=== PATIENT | female | born 1975 | race Caucasian/White ===

== ENCOUNTER → 2017-01-28 | Outpatient (CLI) | payer OTHER | LOC: FIMAGING 09:28 | PROVIDERS: ATTEND Nurse Practitioner Women's Health | DX: N63 Unspecified lump in breast (principal); Z80.3 Family history of malignant neoplasm of breast | CPT/HCPCS: G0204 ==

== ENCOUNTER 2018-07-20 14:36 | Emergency (ER) | payer OTHER ==
[2018-07-20] MEDS ORDERED: OXYCODONE/APAP 5/325 TAB PO ONE ×2 (15:24→16:22)
--- NOTE | 2018-07-20 16:07 | EDPHY ---
H & P Stated Complaint: FALL INJ R ELBOW Time Seen by Provider: 07/20/18 15:56 HPI/ROS: HPI: This is a 43-year-old female who presents with Chief Complaint: FALL INJ R ELBOW Location: Right elbow Quality: Injury Duration: 1-2 hours prior to arrival Signs and Symptoms: No bleeding, no radiation, + numbness, no weakness, no tingling, no incontinence, + decreased range of motion, + swelling, + pain, no fever Timing: Acute, constant Severity: 8 Context: Patient is right-hand dominant, was carrying takeout food in a plastic bag on her left wrist as she was going up the stairs when she tripped and landed on her right outstretched hand. She reports that she feels immediate , constant, severe pain in her right elbow with associated swelling and ecchymosis. She reports that she cannot turn her hand over due to pain. She reports no pain in her right wrist breath, right hand, right fingers. She does have some numbness in her 2nd 3rd fingers. Patient reports when she fell she did not hit her head or lose consciousness. Denies LOC/head injury/neck pain/ dizziness/nausea/vomiting/amnesia. Modifying Factors: None Comment: ROS: A comprehensive 10 system review of systems is otherwise negative aside from elements mentioned in the history of present illness. MEDICAL/SURGICAL/SOCIAL HISTORY: Medical history: Left shoulder injury with questionable dislocation, allergies, . LMP 2-3 weeks ago. Surgical history: Denies Social history: Employed, , nonsmoker. CONSTITUTIONAL: Polite and cooperative middle-aged white female, at bedside, awake and alert, no obvious distress HEENT: Atraumatic and normocephalic. NECK: supple, no midline tenderness, flexion 45 degrees, extension 45 degrees, right and left lateral flexion 45 degrees. No meningismus. Cardiovascular: Normal S1/S2, regular rate, regular rhythm, without murmur rub or gallop. PULMONARY/CHEST: Symmetrical and nontender. no crepitus. Clear to auscultation bilaterally. Good air movement. No accessory muscle usage. ABDOMEN: Soft, nondistended, nontender, no ecchymosis. EXTREMITIES: 2/2 pulses, strength 5/5, left ELBOW: extension only to 90 , flexion to 90, moderate tenderness over medial epicondyle, moderate tenderness over lateral epicondyle, moderate effusion. Right WRIST: Extension to 70, flexion to 80, radial deviation to 20 degree, ulnar deviation to 30, no scaphoid tenderness, no tenderness over ulnar styloid, no tenderness over radial styloid. Able to wiggle all 5 fingers without difficulty. Able to perform shoulder shrugs without difficulty with the deltoid 5/5 strength. DIP/ PIP/MCP flexion/extension intact with good light touch sensation. no deformities , no clubbing, no cyanosis or edema. NEUROLOGICAL: no focal neuro deficits. GCS 15. Light touch sensation intact. SKIN: Warm and dry, no erythema. no rash. Good capillary refill. Source: Patient Exam Limitations: No limitations - Personal History LMP (Females 10-55): 15-21 Days Ago Current Tetanus Diphtheria and Acellular Pertussis (TDAP): Yes - Medical/Surgical History Hx Asthma: Yes Hx Chronic Respiratory Disease: No Hx Diabetes: No Hx Cardiac Disease: No Hx Renal Disease: No Hx Cirrhosis: No Hx Alcoholism: No Hx HIV/AIDS: No Hx Splenectomy or Spleen Trauma: No Other PMH: L SHOULDER INJ/?DISLOCATION - Social History Smoking Status: Never smoked Constitutional: Initial Vital Signs Temperature (C) 36.6 C 07/20/18 14:40 Heart Rate 81 07/20/18 14:40 Respiratory Rate 18 07/20/18 14:40 Blood Pressure 117/72 07/20/18 14:40 O2 Sat (%) 96 07/20/18 14:40 O2 Delivery Mode Room Air Allergies/Adverse Reactions: amoxicillin Allergy (Verified 07/20/18 14:39) latex Allergy (Verified 07/20/18 14:39) Home Medications: Medication Instructions Recorded Dulera 100 Mcg/5 Mcg Inhaler 07/20/18 Flonase Allergy Relief 07/20/18 ZYRTEC 07/20/18 oxyCODONE/APAP 5/325 [Percocet 1 - 2 tab PO Q4H PRN #12 tab 07/20/18 5/325 (*)] Medical Decision Making - Diagnostics Imaging Results: Imaging Impressions Elbow X-Ray 07/20/18 14:44 Impression: Nondisplaced radial head fracture, with elbow joint effusion. Procedures: Procedure: Splint placement. A right posterior Ortho Glass splint and sling were applied by the Emergency Room wellfield technician and myself. After application of the splint I returned and re- examined the patient. The splint was adequately immobilizing the joint and distal to the splint the patient's circulation and sensation was intact. ED Course/Re-evaluation: Vital signs reviewed and stable upon arrival. Ice pack applied and Percocet x2 and Zofran ODT given Reviewed at bedside x-ray image that shows nondisplaced fracture seen at the radial head at the lateral anterior taking emergent. Due to significant swelling and decreased supination and pronation; decision made to place an posterior Ortho Glass splint along with sling. Prescription for Percocet and orthopedic referral No signs of neurovascular compromise/tenting of skin/compartment syndrome/ extremities and joints examined above and below area of concern and are neurovascularly intact. This patient was seen under the supervision of my secondary supervising physician. I evaluated care for this patient independently. Discussed this patient with Dr. Raymond who did not see the patient. Differential Diagnosis: Differential diagnosis includes but is not limited to radial fracture, ulnar fracture, distal humerus fracture, effusion, contusion. - Data Points Medications Given: Discontinued Medications Ondansetron HCl (Zofran Odt) 4 mg PO EDNOW ONE Stop: 07/20/18 16:23 Last Admin: 07/20/18 16:26 Dose: 4 mg Oxycodone/Acetaminophen (Percocet 5/325) 1 tab PO EDNOW ONE Stop: 07/20/18 15:25 Last Admin: 07/20/18 15:29 Dose: 1 tab Oxycodone/Acetaminophen (Percocet 5/325) 1 tab PO EDNOW ONE Stop: 07/20/18 16:23 Last Admin: 07/20/18 16:27 Dose: 1 tab Departure - Departure Disposition: Home, Routine, Self-Care Clinical Impression: Effusion of right elbow Closed fracture of head of right radius Qualifiers: Encounter type: initial encounter Fracture alignment: nondisplaced Qualified Code(s): S52.124A - Nondisplaced fracture of head of right radius, initial encounter for closed fracture Condition: Good Instructions: Elbow Fracture (ED), How to Use a Sling (ED), Splint Care (ED) Additional Instructions: Keep the splint dry and in place until seen by Orthopedics. Wear sling while out of bed for comfort. Take Tylenol 650 mg every 4 hours and/or Ibuprofen 600 mg every 8 hours with food as needed for pain. Use Percocet every 6 hours as needed for severe/break through pain. Do not use Tylenol and Percocet concomitantly. Apply ice for 30 minutes at a time; 2-3 times per day for the next 1-2 days. Follow up with Orthopedics in 2-3 days at which time they will evaluate and recommend with you if conservative management versus surgery is indicated. Return to the ER immediately if you experience new or worsening pain, discoloration, numbness, tingling, or any other symptoms that concern you. Follow-Up: Please follow-up as noted above. Follow-up sooner if your condition worsens or if you develop any new problems. Call as soon as possible for an appointment. Be clear when you call for an appointment that this is an Emergency Department follow-up. Contact the Emergency Department if you have trouble arranging follow-up care. Our referrals are not based on your insurance network. When time allows, contact your insurance carrier to verify the referral physician is in your plan. If not, get a referral for an in-network internship. Referrals: Víctor Suarez MD [Medical Doctor] - As per Instructions Prescriptions: oxyCODONE/APAP 5/325 [Percocet 5/325 (*)] 1 - 2 tab PO Q4H PRN #12 tab PRN Reason: Pain, Severe
[2018-07-20] MEDS ORDERED: ONDANSETRON DISINTEGRATING 4 MG TAB PO ONE (16:22)
[2018-07-20 16:28] VITALS: BP 100/66
== END 2018-07-20 16:47 | disposition home or self-care (01) ==
PROC: 2W3CX1Z Immobilization of Right Lower Arm using Splint (ICD-10-PCS; principal; 2018-07-20)
DX: S52.124A Nondisplaced fracture of head of right radius, initial encounter for closed fracture (principal); W10.8XXA Fall (on) (from) other stairs and steps, initial encounter; Y92.008 Other place in unspecified non-institutional (private) residence as the place of occurrence of the external cause
CPT/HCPCS: A4565